=== PATIENT | male | born 1995 | race Caucasian/White ===

== ENCOUNTER 2018-06-01 11:03 | Emergency (ER) | payer BC, OTHER ==
[2018-06-01] MEDS ORDERED: LORazepam 1 MG Tab PO ONE (11:35)
--- NOTE | 2018-06-01 11:37 | EDM.PDOCBH ---
ED HPI GENERAL MEDICAL PROBLEM - General Chief Complaint: Behavioral/Psych Stated Complaint: ANXIETY Time Seen by Provider: 06/01/18 11:16 Source of Information: Reports: Patient, Family (mother) History Limitations: Reports: No Limitations - History of Present Illness INITIAL COMMENTS - FREE TEXT/NARRATIVE: 23-year-old male presents for evaluation and treatment of anxiety. Patient reports he's had anxiety "his entire life ". Recently his anxiety seems be getting worse. Reports today he was driving to work and he just felt like he couldn't drive; his anxiety was incapacitating. At this time he states he does feel quite anxious. He has previously been on Paxil for anxiety but states this made his symptoms much worse and he actually experienced some depression which he does not normally have. He reports before he used to wake from a sleep with an anxiety attack. He has not had this recently. States he's actually been sleeping well. He is not having trouble with appetite. He denies any depression or sadness. No suicidal or homicidal ideation plan. Feels like he is concentrating okay when he does not have any panic attack. Reports he has panic attack about once every morning and several smaller ones throughout the days. He is not seen a psychiatrist or counselor. He has previously been to an inpatient facility for anxiety but he feels that this greatly worsened his anxiety. He does not currently have a primary care provider at this time. Complains of feeling dizzy and sinus pressure. Has been experiencing symptoms the last 2-3 days. He feels that this is worsening his anxiety. He reports nausea associated with the dizziness. He also has a headache to the base of his skull. He states that his ears "feel weird ". No cough or vomiting. No sore throat. He states he has been drinking plenty of fluids. - Related Data Allergies Allergy/AdvReac Type Severity Reaction Status Date / Time amoxicillin [Amoxicillin] Allergy Severe Hives Verified 06/01/18 11:12 Home Meds: Home Meds LORazepam [Ativan] 1 mg PO TID PRN #20 tablet 06/01/18 [Rx] busPIRone [Buspar] 7.5 mg PO BID #40 tab 06/01/18 [Rx] Past Medical History Neurological History: Reports: Other (See Below) Other Neuro History: cluster seizues Psychiatric History: Reports: Anxiety Social & Family History - Tobacco Use Smoking Status *Q: Current Every Day Smoker Years of Tobacco use: 7 Packs/Tins Daily: 1 - Caffeine Use Caffeine Use: Reports: Coffee - Recreational Drug Use Recreational Drug Use: No ED ROS GENERAL - Review of Systems Review Of Systems: See Below HEENT: Reports: Ear Pain, Sinus Problem. Denies: Throat Pain Respiratory: Denies: Cough GI/Abdominal: Reports: Nausea. Denies: Abdominal Pain, Vomiting Neurological: Reports: Dizziness, Headache Psychiatric: Reports: Anxiety. Denies: Depression, Homicidal Ideation, Suicidal Ideation ED EXAM, BEHAVIORAL HEALTH - Physical Exam Exam: See Below Exam Limited By: No Limitations General Appearance: Alert, WD/WN, No Apparent Distress, Obese Ears: Normal External Exam, Normal Canal, Hearing Grossly Normal, Normal TMs Throat/Mouth: Normal Inspection, Normal Oropharynx, Normal Voice, No Airway Compromise Respiratory/Chest: No Respiratory Distress, Lungs Clear, Normal Breath Sounds Cardiovascular: Normal Peripheral Pulses, Regular Rate, Rhythm, No Murmur Neurological: Alert, Normal Mood/Affect, Normal Cognition Psychiatric: Alert, Normal Affect, Normal Cognition, Normal Mood, Restless ( with orthostatic blood pressures). No: Depressed Mood, Flat Affect, Uncooperative, Homicidal Thoughts, Suicidal Plan, Suicidal Thoughts, Threatening Behavior Skin Exam: Warm, Dry, Normal color COURSE, BEHAVIORAL HEALTH COMP - Course Vital Signs: Last Vital Signs Temp 98.6 F 06/01/18 11:10 Pulse 113 H 06/01/18 11:10 Resp 18 06/01/18 11:10 BP 150/114 H 06/01/18 11:10 Pulse Ox 99 06/01/18 11:10 Orthostatic Blood Pressure [ 148/107 Sitting] Orthostatic Blood Pressure [ 132/86 Supine] Orders, Labs, Meds: Active Orders 24 hr Category Date Time Status Orthostatic Vital Signs [RC] ASDIRECTED Care 06/01/18 11:36 Active Medications Discontinued Medications Generic Name Dose Route Start Last Admin Trade Name Stephane PRN Reason Stop Dose Admin Lorazepam 1 mg 06/01/18 11:35 06/01/18 11:41 Ativan PO 06/01/18 11:36 1 mg ONETIME ONE Administration Re-Assessment/Re-Exam: 12:20 Checked on the patient. Feeling better with the Ativan. Patient is not manic, acutely suicidal or homicidal. No need for inpatient treatment today. Can be managed as an outpatient. He would like to see a psychiatrist and will give him resources for about services here in town. I will prescribe some Ativan and start on buspar. Discharge instructions as documented. Departure - Departure Time of Disposition: 12:23 Disposition: Home, Self-Care 01 Condition: Good Clinical Impression: Anxiety, Panic disorder - Discharge Information *PRESCRIPTION DRUG MONITORING PROGRAM REVIEWED*: No *COPY OF PRESCRIPTION DRUG MONITORING REPORT IN PATIENT NUBIA: No Prescriptions: busPIRone [Buspar] 7.5 mg PO BID #40 tab LORazepam [Ativan] 1 mg PO TID PRN #20 tablet PRN Reason: Anxiety Instructions: Panic Attack, [id number], Living With Anxiety Referrals: PCP,None [Primary Care Provider] - Ashly Carnes MD [Physician] - Forms: ED Department Discharge, ED Return to Work/School Form Additional Instructions: You were given medication in the ER that can affect your ability to drive and operate machinery. Do not drive or operate machinery within 8 hours of taking benzos. Follow-up with family medicine within 2 weeks for recheck of your symptoms. If you'd like to see a psychiatrist recommend [facility]. A brochure has been provided for you. They have walk-in hours from 8am Thursday through for same day appointments. Ativan 1 tab 3 times a day as needed for anxiety and panic attacks. Do not drive or operate machinery when taking all his medication affects you as it may make you stated. Busar 7.5mg PO bid. Recommend an OTC nasal spray such as flonase or nasonnex for the sinus pressure and dizziness. Please return to the ER if your symptoms change or worsen. - My Orders Last 24 Hours: My Active Orders 06/01/18 11:36 Orthostatic Vital Signs [RC] ASDIRECTED - Assessment/Plan Last 24 Hours: My Active Orders 06/01/18 11:36 Orthostatic Vital Signs [RC] ASDIRECTED
== END 2018-06-01 12:37 | disposition home or self-care (01) ==
LOC: JD.ED 11:03
DX: F41.0 Panic disorder [episodic paroxysmal anxiety] (principal); F17.210 Nicotine dependence, cigarettes, uncomplicated; Z88.1 Allergy status to other antibiotic agents
CPT/HCPCS: 99283; A9270; 99284

== ENCOUNTER 2024-12-28 19:11 | Emergency (ER) | payer BC, OTHER ==
[2024-12-28 20:06] LABS: BASOPHILS PERCENT AUTO 0.2 % (0.0-1.0); EOSINOPHILS ABSOLUTE AUTO 0.1 K/mm3 (0.0-0.4); EOSINOPHILS PERCENT AUTO 0.7 % (0.0-6.0); HEMATOCRIT 48.1 % (42.0-52.0); IMMATURE GRAN ABSOLUTE AUTO 0.07 K/mm3 (0.00-0.05); IMMATURE GRAN PERCENT AUTO 0.7 % (0.0-0.4); LYMPHOCYTES ABSOLUTE AUTO 1.6 K/mm3 (1.0-4.8); LYMPHOCYTES PERCENT AUTO 15.6 % (24.0-44.0); MEAN CORPUSCULAR HEMOGLOBIN 27.4 pg (28.0-32.0); MEAN CORPUSCULAR HGB CONC 33.3 g/dl (32.0-36.0); MEAN CORPUSCULAR VOLUME 82.5 fl (83.0-99.0); MEAN PLATELET VOLUME 9.7 fl (9.4-12.4); MONOCYTES ABSOLUTE AUTO 0.7 K/mm3 (0.0-0.8); MONOCYTES PERCENT AUTO 6.5 % (0.0-8.0); NEUTROPHILS PERCENT AUTO 76.3 % (41.0-71.0); PLATELET COUNT,PLT 307 K/mm3 (150-400); RED BLOOD CELL COUNT 5.83 M/mm3 (4.52-5.90); WHITE BLOOD CELL COUNT,WBC 10.48 K/mm3 (3.9-11.3)
[2024-12-28] MEDS: Sodium Chloride 0.9% 10 ML Syringe FLUSH ONE (20:07)
[2024-12-28] MEDS: Iopamidol 612 MG/ML 100 ML Bottle IVPUSH ONE (20:07)
[2024-12-28] MEDS: Sodium Chloride 0.9% 1,000 ML IV SCH (20:12)
[2024-12-28] MEDS: Dicyclomine 10 MG Cap PO ONE (20:12)
[2024-12-28] MEDS: Ondansetron 4 MG/2 ML SDV IVPUSH ONE (20:12)
[2024-12-28] MEDS: Sodium Chloride 0.9% 10 ML Syringe FLUSH PRN (20:13)
[2024-12-28 20:36] LABS: A/G RATIO 0.9 (1-2); ALBUMIN 3.6 g/dl (3.4-5.0); BILIRUBIN TOTAL 0.3 mg/dL (0.2-1.0); C-REACTIVE PROTEIN 3.39 mg/dL (<0.30); CALCIUM 8.4 mg/dL (8.5-10.1); CREATININE 0.9 mg/dL (0.7-1.3); EST CRCL DRUG DOSING (CG) 126.66 mL/min; MAGNESIUM 1.9 mg/dL (1.8-2.4); PROTEIN TOTAL,TP 7.6 g/dl (6.4-8.2)
[2024-12-28] MEDS: Lactated Ringers 1,000 ML IV ONE (21:33)
[2024-12-28] MEDS: Levofloxacin 750 MG Tab PO STA (22:40)
== END 2024-12-28 22:40 | disposition home or self-care (01) ==
LOC: JD.ED 19:11
DX: R19.7 Diarrhea, unspecified (principal); R10.9 Unspecified abdominal pain; F17.210 Nicotine dependence, cigarettes, uncomplicated; Z88.1 Allergy status to other antibiotic agents
CPT/HCPCS: 36415; 74177; 74177-26; 80053; 83690; 83735; 85025; 86140; 87045; 87046; 87493; 87899; 96361; 96374; 99284; 99284-25; A9270-GY; J2405; J7030; J7120; Q9967